=== PATIENT | female | born 1945 ===

== ENCOUNTER 2018-03-25 09:02 | Day surgery (SDC) | payer MEDICARE, OTHER ==
[2018-03-25 10:40] LABS: INR 0.9
[2018-03-25] MEDS ORDERED: Lactated Ringer's 1,000 ML IV ONE (12:25)
[2018-03-25] MEDS ORDERED: ceFAZolin IV 1 gm in Dextrose 1 GM/50 ML BAG IVPB ONE (12:31)
[2018-03-25] MEDS ORDERED: Iohexol 240 (50 ml) ONE (12:31)
[2018-03-25] MEDS ORDERED: Bupivacaine-Epi 0.5%-1:200,000 PF Inj ONE (12:32)
[2018-03-25] MEDS ORDERED: Propofol 10 mg/ml Inj (20 ML) ONE (12:41)
[2018-03-25] MEDS ORDERED: Rocuronium 10 mg/ml (5 ml) ONE (12:57)
[2018-03-25] MEDS ORDERED: Midazolam 2 MG/2 ML VIAL ONE (12:57)
[2018-03-25] MEDS ORDERED: HYDROmorphone 0.5 mg/0.5 ml ISec IVP PRN (13:10)
--- NOTE | 2018-03-25 14:12 | PCM.SURG1 ---
Surgeon's Initial Post Op Note - Surgeon's Notes Surgeon: Dr. Gabriel Soap Boiler: Heber Corea PGY3, Chidi Ruiz PGY1 Type of Anesthesia: General Endo Pre-Operative Diagnosis: Multiple Gallbladder Polyps Operative Findings: see operative dictation note Post-Operative Diagnosis: same Operation Performed: Laparascopic Cholecystectomy w/ IOC Specimen/Specimens Removed: gallbladder Estimated Blood Loss: EBL {In ML}: 20 Blood Products Given: N/A Drains Used: No Drains Post-Op Condition: Good Date of Surgery/Procedure: 03/25/18 Time of Surgery/Procedure: 14:11
[2018-03-25 16:43] VITALS: O2SAT 97
[2018-03-25 17:47] VITALS: BP 124/67; PULSE 74; RESP 18; TEMP 98
--- NOTE | 2018-03-26 08:46 | OP ---
PROCEDURE DATE: 03/25/2018 PREOPERATIVE DIAGNOSIS: Multiple gallbladder polyps. POSTOPERATIVE DIAGNOSIS: Multiple gallbladder polyps. PROCEDURE CARRIED OUT: Laparoscopic cholecystectomy with C-arm cholangiogram. SURGEON: Amandeep Gabriel Jr., MD GRAIN SCOOPER: Heber Corea DO ANESTHESIOLOGIST: Dr. Dennison INDICATIONS: The patient is an older woman, fairly good health, found on episodes of abdominal pain to have multiple polyps in the gallbladder, also abnormalities in the pancreas further evaluated by MRCP. Prior to the operation, the risk of the operation, the risk associated with the polyps and the fact that she does not have gallstones per se was reviewed clearly with the patient. OPERATIVE FINDINGS: The cholangiogram carried out to the cystic duct showed free flow into the duodenum. Visualization of the hepatic radicles and no evidence of any stones or strictures. There were some adhesions in lower midline from previous surgery. The rest of the intraoperative findings were unremarkable. DESCRIPTION OF PROCEDURE: The patient was given general anesthesia and intravenous antibiotics. Venodyne boots were applied. Jacinto trocar was inserted by a cut-down technique in the umbilicus. Two additional 5-mm trocars were placed. Cystic artery and cystic duct view of safety obtained. After this had been done, the cholangiogram was carried out. We then clipped the cystic duct, clipped the cystic artery, and removed the gallbladder from the bed of the liver. Obtained hemostasis and brought it out through the umbilical port into a bag. Terminated the procedure. There was a good closure of the umbilical port. BLOOD LOSS FOR THE PROCEDURE: 20 mL. OPERATION CARRIED OUT: Laparoscopic cholecystectomy with cholangiogram. Amandeep Gabriel Jr., MD cc: Dr. Rubi Rutherford
--- NOTE | 2018-03-26 17:48 | RAD ---
Date of service: 03/25/2018 PROCEDURE: Intraoperative Fluoroscopy. HISTORY: GALL BLADDER POLYPS FINDINGS: Fluoroscopic assistance was provided for laparoscopic cholecystectomy. Please refer to the operative report from ALESHA Lewis. Total fluoroscopic time (continuous mode) utilized during the procedure 10.7 (seconds). Total exam DLP: 1.57 (mGy)
== END 2018-03-25 17:45 | disposition home or self-care (01) ==
LOC: C.SDS 09:02
PROVIDERS: ATTEND Surgery Vascular Surgery
DX: K80.20 Calculus of gallbladder without cholecystitis without obstruction (principal)
CPT/HCPCS: 36415; 47563; 82948; 85610; 85730; 88304; J0690; J1170; J2250; J2405; J2704; J3010; J7040; J7120; Q9966